=== PATIENT | male | born 1995 | race Caucasian/White ===

== ENCOUNTER 2019-02-07 23:11 | Emergency (ER) | payer OTHER ==
[~2019-02-07] VITALS: Ht 175.3 cm; Wt 75.0 kg
[2019-02-07 23:12] VITALS: Ht 175.3 cm; Wt 75.0 kg
[2019-02-08 00:25] VITALS: BP 123/83; PULSE 87; RESP 12
== END 2019-02-08 00:25 | disposition home or self-care (01) ==
LOC: E/R 23:11
DX: T78.2XXA Anaphylactic shock, unspecified, initial encounter (principal); F17.210 Nicotine dependence, cigarettes, uncomplicated
CPT/HCPCS: Z7502; Z7610; 99282